=== PATIENT | male | born 1950 | race Hispanic/Latino ===

== ENCOUNTER → 2018-03-28 | Outpatient (CLI) | payer MEDICARE | END | disposition home or self-care (01) | LOC: RAH 10:06 | PROVIDERS: ATTEND Family Medicine | DX: M47.816 Spondylosis without myelopathy or radiculopathy, lumbar region (principal); M47.815 Spondylosis without myelopathy or radiculopathy, thoracolumbar region; R06.02 Shortness of breath; I70.0 Atherosclerosis of aorta | CPT/HCPCS: 71046; 72100 ==

== ENCOUNTER → 2018-11-10 | Outpatient (CLI) | payer MEDICARE | END | disposition home or self-care (01) | LOC: RAH 08:58 | PROVIDERS: ATTEND Family Medicine | DX: I65.23 Occlusion and stenosis of bilateral carotid arteries (principal) | CPT/HCPCS: 93880 ==

== ENCOUNTER → 2018-11-22 | Outpatient (CLI) | payer MEDICARE | END | disposition home or self-care (01) | LOC: RAH 08:44 | PROVIDERS: ATTEND Family Medicine | DX: J32.0 Chronic maxillary sinusitis (principal); J32.2 Chronic ethmoidal sinusitis | CPT/HCPCS: 70551 ==

== ENCOUNTER → 2020-12-12 | Outpatient (CLI) | payer OTHER, MEDICARE | END | disposition home or self-care (01) | LOC: RAH 13:21 | PROVIDERS: ATTEND Otolaryngology Plastic Surgery within the Head & Neck | DX: H74.8X2 Other specified disorders of left middle ear and mastoid (principal) | CPT/HCPCS: 70480 ==

== ENCOUNTER 2022-04-21 14:38 | Observation (INO) | payer OTHER, MEDICARE ==
[~2022-04-21] VITALS: Ht 175.3 cm; Wt 82.8 kg
[2022-04-21 16:31] LABS: BASOPHILS % (AUTO) 0.3 % (0.0-5.0); EOSINOPHILS % (AUTO) 25.6 % (0.0-8.0); HEMATOCRIT 40.1 % (42-54); LYMPHOCYTES % (AUTO) 9.1 % (21.0-51.0); MEAN CORPUSCULAR HEMOGLOBIN 31.1 pg (27.0-33.0); MEAN CORPUSCULAR HGB CONC 33.7 g/dL (32.0-36.0); MEAN CORPUSCULAR VOLUME 92.4 fL (79-99); MONOCYTES % (AUTO) 7.5 % (3.0-13.0); NEUTROPHILS % (AUTO) 56.7 % (40.0-77.0); PLATELET COUNT (AUTO) 217 K/uL (130-400); RED BLOOD CELL COUNT(AUTO) 4.34 MIL/uL (4.50-6.20); RED CELL DISTRIBUTION WIDTH 13.7 % (11.0-15.5); WHITE BLOOD COUNT (AUTO) 19.7 K/uL (4.8-10.8)
[2022-04-21 16:49] LABS: CREATININE 1.1 mg/dL (0.5-1.5); POTASSIUM 3.8 mmol/L (3.5-5.1)
[2022-04-21 16:54] LABS: ALBUMIN 3.7 g/dL (3.5-5.0); TOTAL PROTEIN, SERUM 7.5 g/dL (6.0-8.3)
[2022-04-21 17:29] LABS: BAND NEUTROPHILS % (MANUAL) 2 % (0-2); LYMPHOCYTES % (MANUAL) 3 % (22-44); MAN.DIFF COMMENT-IMPRESSION MANUAL DIFFERENTIAL; MONOCYTES % (MANUAL) 4 % (2-9); REACTIVE LYMPHOCYTES 2 % (0-0); SEGMENTED NEUTROPHILS % 89 % (40-70)
[2022-04-21 17:30] LABS: PLATELET MORPHOLOGY COMMENT ADEQUATE
[2022-04-21] MEDS ORDERED: CEFTRIAXONE 1G VIAL IVP ONE (18:00)
[2022-04-21] MEDS ORDERED: ACETAMINOPHEN 500 MG TABLET PO ONE (18:00)
[2022-04-21] MEDS ORDERED: 0.9%NACL 1000ML 1,000 ML IV ONE ×2 (18:00)
[2022-04-21 18:56] LABS: APPEARANCE,URINE CLOUDY (CLEAR); BILIRUBIN,URINE NEGATIVE (NEGATIVE); COLOR,URINE YELLOW (YELLOW); GLUCOSE, URINE (UA) NEGATIVE (NEGATIVE); KETONES,URINE 5 mg/dL (NEGATIVE); LEUKOCYTE ESTERASE ,URINE 500 Leu/uL (NEGATIVE); NITRATE,URINE 1+ (NEGATIVE); OCCULT BLOOD,URINE MODERATE (NEGATIVE); PH,URINE 5.5 (5.0-8.0); PROTEIN,URINE 100 mg/dL (NEGATIVE); UROBILINOGEN,URINE 0.2 mg/dL (0.2-1.0)
[2022-04-21 19:00] LABS: BACTERIA,URINE MANY /HPF (None Seen); MUCUS,URINE MOD LPF (None Seen); SQUAMOUS EPITHELIAL CELL,UR FEW /HPF (0-2); WBC,URINE TNTC /HPF (0-1)
[2022-04-21] MEDS ORDERED: CEFTRIAXONE 1G VIAL IVP STA (19:53)
[2022-04-21] MEDS ORDERED: ACETAMINOPHEN 325 MG TAB PO PRN (21:30)
[2022-04-21] MEDS ORDERED: TEMAZEPAM 15 MG CAPSULE PO PRN (21:30)
[2022-04-21] MEDS ORDERED: LACTULOSE 20 GM/30 ML UDCUP PO PRN (21:30)
[2022-04-21] MEDS ORDERED: LABETALOL 20MG SYG IV PRN (21:30)
[2022-04-21] MEDS ORDERED: DOCUSATE SODIUM 100 MG CAP PO PRN (21:30)
[2022-04-21] MEDS ORDERED: ONDANSETRON 4MG INJ IVP PRN (21:30)
[2022-04-21] MEDS ORDERED: HYDRALAZINE 20MG/ML VIAL IV PRN (21:30)
[2022-04-21] MEDS ORDERED: CLONIDINE HCL 0.1 MG TABLET PO PRN (21:30)
[2022-04-21] MEDS ORDERED: ACETAMINOPHEN 650 MG SUPPOSITORY RC PRN (21:30)
[2022-04-21] MEDS ORDERED: PIOG30TA70 PO (23:39)
[2022-04-21] MEDS ORDERED: MEMA5TAB42 PO (23:39)
[2022-04-21] MEDS ORDERED: METF-444 PO (23:39)
[2022-04-21] MEDS ORDERED: TAMS-1 PO (23:39)
[2022-04-21] MEDS ORDERED: ROSU10TA28 PO (23:39)
[2022-04-21] MEDS ORDERED: VITAMIN D3 PO (23:39)
[2022-04-22 06:09] LABS: BASOPHILS % (AUTO) 0.1 % (0.0-5.0); EOSINOPHILS % (AUTO) 0.1 % (0.0-8.0); LYMPHOCYTES % (AUTO) 9.9 % (21.0-51.0); MEAN CORPUSCULAR HEMOGLOBIN 31.1 pg (27.0-33.0); MEAN CORPUSCULAR HGB CONC 33.7 g/dL (32.0-36.0); MEAN CORPUSCULAR VOLUME 92.5 fL (79-99); MONOCYTES % (AUTO) 7.4 % (3.0-13.0); NEUTROPHILS % (AUTO) 81.8 % (40.0-77.0); PLATELET COUNT (AUTO) 161 K/uL (130-400); RED BLOOD CELL COUNT(AUTO) 4.11 MIL/uL (4.50-6.20); RED CELL DISTRIBUTION WIDTH 13.9 % (11.0-15.5); WHITE BLOOD COUNT (AUTO) 17.4 K/uL (4.8-10.8)
[2022-04-22 06:29] LABS: CREATININE 0.8 mg/dL (0.5-1.5); MAGNESIUM 1.9 mg/dL (1.80-2.40); POTASSIUM 3.7 mmol/L (3.5-5.1)
[2022-04-22] MEDS: INSULIN HUMULIN R 100 UNIT/ML 3ML SQ SCH ×4 (07:30→20:37)
[2022-04-22] MEDS: MEMANTINE HCL 5 MG TABLET PO SCH (08:17)
[2022-04-22] MEDS: TAMSULOSIN HCL 0.4 MG CAP.ER.24H PO SCH (08:17)
[2022-04-22] MEDS: CEFTRIAXONE 2GM VIAL IVP SCH (08:17)
[2022-04-22] MEDS: PANTOPRAZOLE 40 MG TAB DR PO SCH ×2 (08:18→20:13)
[2022-04-22] MEDS: ATORVASTATIN 20 MG TABLET PO SCH (08:18)
[2022-04-22] MEDS: VIT D3 5000 UNIT PO SCH (08:19)
[2022-04-22] MEDS: NICOTINE 21 MG/ 24 HR PATCH TD SCH (09:02)
[2022-04-22 15:55] VITALS: BP 169/100
[2022-04-22 20:00] VITALS: BP 144/71
[2022-04-23] VITALS: BP 123/78
[2022-04-23 04:00] VITALS: BP 142/89
[2022-04-23 05:33] LABS: HEMATOCRIT 35.8 % (42-54); MEAN CORPUSCULAR HEMOGLOBIN 31.4 pg (27.0-33.0); MEAN CORPUSCULAR HGB CONC 33.2 g/dL (32.0-36.0); MEAN CORPUSCULAR VOLUME 94.5 fL (79-99); RED BLOOD CELL COUNT(AUTO) 3.79 MIL/uL (4.50-6.20); RED CELL DISTRIBUTION WIDTH 13.7 % (11.0-15.5); WHITE BLOOD COUNT (AUTO) 11.5 K/uL (4.8-10.8)
[2022-04-23 05:49] LABS: CREATININE 0.8 mg/dL (0.5-1.5); MAGNESIUM 1.9 mg/dL (1.80-2.40); PHOSPHORUS 2.7 mg/dL (2.5-4.9); POTASSIUM 3.6 mmol/L (3.5-5.1)
[2022-04-23 05:57] LABS: HEMOGLOBIN A1C 6.3 % (4.0-6.0)
[2022-04-23] MEDS: INSULIN HUMULIN R 100 UNIT/ML 3ML SQ SCH ×2 (06:43→11:30)
[2022-04-23 08:30] VITALS: BP 138/78
[2022-04-23] MEDS: PANTOPRAZOLE 40 MG TAB DR PO SCH (08:35)
[2022-04-23] MEDS: TAMSULOSIN HCL 0.4 MG CAP.ER.24H PO SCH (08:35)
[2022-04-23] MEDS: MEMANTINE HCL 5 MG TABLET PO SCH (08:35)
[2022-04-23] MEDS: ATORVASTATIN 20 MG TABLET PO SCH (08:35)
[2022-04-23] MEDS: NICOTINE 21 MG/ 24 HR PATCH TD SCH (08:36)
[2022-04-23] MEDS: CEFTRIAXONE 2GM VIAL IVP SCH (08:36)
[2022-04-23] MEDS: VIT D3 5000 UNIT PO SCH (08:37)
[2022-04-23] MEDS ORDERED: ENOXAPARIN SODIUM 40 MG/0.4 ML SYRINGE SQ SCH (09:00)
[2022-04-23 11:00] VITALS: BP 140/97
[2022-04-23] MEDS ORDERED: LEVO-70 PO (12:21)
== END 2022-04-23 14:35 | disposition home or self-care (01) ==
LOC: EDH 14:38 → EDHIP 19:48 → 3BH 04-22 15:55
PROVIDERS: ADMIT Internal Medicine Critical Care Medicine; ATTEND Internal Medicine Critical Care Medicine
DX: A41.9 Sepsis, unspecified organism (principal); Z20.822 Contact with and (suspected) exposure to COVID-19; N30.00 Acute cystitis without hematuria; A80.9 Acute poliomyelitis, unspecified; E11.9 Type 2 diabetes mellitus without complications; E78.00 Pure hypercholesterolemia, unspecified; E78.5 Hyperlipidemia, unspecified; F17.200 Nicotine dependence, unspecified, uncomplicated; Z79.899 Other long term (current) drug therapy
CPT/HCPCS: 96374; 96376; 96361; 99285; 80053; 85025 ×2; 87040 ×2; 87077; 87088; 87186; 87804 ×2; 83605; 81001; 36415 ×3; 87635; 71045; 93005 ×3; 83735 ×2; 84100 ×2; 80048 ×2; 82948 ×5; 76770; 96372; 83036; 85027; 97161; 97116; 84145; G0378 ×42; C9803; J7030; J0696 ×4; J1650

== ENCOUNTER → 2022-09-25 | Outpatient (CLI) | payer OTHER, MEDICARE ==
[~2022-09-25] MED LIST: IOHEXOL 350 MG/ML 100ML INFUS..BTL IV ONE; LEVO-70 PO; MEMA5TAB42 PO; METF-444 PO; PIOG30TA70 PO; ROSU10TA28 PO; TAMS-1 PO; VITAMIN D3 PO
== END | disposition home or self-care (01) ==
LOC: RAH 09:51
PROVIDERS: ATTEND Family Medicine
DX: K57.32 Diverticulitis of large intestine without perforation or abscess without bleeding (principal); N39.0 Urinary tract infection, site not specified; R31.9 Hematuria, unspecified
CPT/HCPCS: 74178; Q9967

== ENCOUNTER 2023-10-01 06:41 | Day surgery (SDC) | payer OTHER, MEDICARE ==
[2023-09-27 09:38] VITALS: BP 131/71; PULSE 72; RESP 18
[2023-09-27 09:54] LABS: BASOPHILS # (AUTO) 0.03 K/uL (0.00-0.20); BASOPHILS % (AUTO) 0.4 % (0.0-5.0); EOSINOPHILS % (AUTO) 1.2 % (0.0-8.0); HEMATOCRIT 42.2 % (42-54); IMMATURE GRANULOCYTE ABSOLUTE 0.02 K/uL (0-1); LYMPHOCYTES # (AUTO) 2.1 K/uL (1.0-4.8); LYMPHOCYTES % (AUTO) 25.3 % (21.0-51.0); MEAN CORPUSCULAR HEMOGLOBIN 31.6 pg (27.0-33.0); MEAN CORPUSCULAR HGB CONC 33.2 g/dL (32.0-36.0); MEAN CORPUSCULAR VOLUME 95.3 fL (79-99); MONOCYTES # (AUTO) 0.7 K/uL (0.1-1.0); MONOCYTES % (AUTO) 8.5 % (3.0-13.0); NEUTROPHILS # (AUTO) 5.3 K/uL (1.8-7.7); NEUTROPHILS % (AUTO) 64.4 % (40.0-77.0); PLATELET COUNT (AUTO) 300 K/uL (130-400); RED BLOOD CELL COUNT(AUTO) 4.43 MIL/uL (4.50-6.20); RED CELL DISTRIBUTION WIDTH 13.3 % (11.0-15.5); WHITE BLOOD COUNT (AUTO) 8.3 K/uL (4.8-10.8)
[2023-09-27 10:00] LABS: APPEARANCE,URINE CLOUDY (CLEAR); BILIRUBIN,URINE NEGATIVE (NEGATIVE); COLOR,URINE YELLOW (YELLOW); GLUCOSE, URINE (UA) NEGATIVE (NEGATIVE); KETONES,URINE NEGATIVE (NEGATIVE); LEUKOCYTE ESTERASE ,URINE 500 Leu/uL (NEGATIVE); NITRATE,URINE 2+ (NEGATIVE); OCCULT BLOOD,URINE NEGATIVE (NEGATIVE); PH,URINE 5.5 (5.0-8.0); PROTEIN,URINE 10 mg/dL (NEGATIVE); UROBILINOGEN,URINE 0.2 mg/dL (0.2-1.0)
[2023-09-27 10:03] LABS: ADD UA MICROSCOPIC YES
[2023-09-27 10:07] LABS: INR 1.04 (0.85-1.15); PROTHROMBIN TIME 11.2 SEC (9.6-11.6)
[2023-09-27 10:08] LABS: PARTIAL THROMBOPLASTIN TIME 28.6 SEC (26.3-35.5)
[2023-09-27 10:10] LABS: BACTERIA,URINE MANY /HPF (None Seen); MUCUS,URINE FEW LPF (None Seen); SQUAMOUS EPITHELIAL CELL,UR RARE /HPF (0-2); UNCLASSIFIED CRYSTAL 1 /HPF (None Seen); WBC,URINE TNTC /HPF (0-1)
[2023-09-27 10:13] LABS: CREATININE 0.8 mg/dL (0.5-1.3)
[2023-10-01] VITALS (18 sets, daily range): BP systolic 112–161; BP diastolic 71–82; PULSE 64–78; RESP 13–18
[~2023-10-01] VITALS: Ht 172.7 cm; Wt 83.6 kg
[~2023-10-01 06:41] MED LIST changes: +FLUT1BLS3 IH; +HYDR-4068 PO; -IOHEXOL 350 MG/ML 100ML INFUS..BTL IV ONE; -LEVO-70 PO; +MEMA5TAB16 PO; -MEMA5TAB42 PO; -ROSU10TA28 PO; +ROSU10TA72 PO; -VITAMIN D3 PO
[2023-10-01] MEDS ORDERED: CEFAZOLIN SODIUM 2 GM VIAL ONE (07:23)
[2023-10-01] MEDS: LACTATED RINGERS 1000ML 1,000 ML IV ONE (07:30)
[2023-10-01] MEDS ORDERED: SUCCINYLCHOLINE CHLORIDE 20 MG/ML 10 ML VIAL ONE (07:36)
[2023-10-01] MEDS ORDERED: LIDOCAINE PF 100MG/5ML (2%) SYRINGE 5ML ONE (07:36)
[2023-10-01] MEDS ORDERED: GLYCOPYRROLATE 0.2 MG/ML 5 ML VIAL ONE (07:36)
[2023-10-01] MEDS ORDERED: DEXAMETHASONE SOD PHOSPHATE 10MG/ML 1ML VIAL ONE (07:36)
[2023-10-01] MEDS ORDERED: PROPOFOL 10 MG/ML 20ML VIAL IV ONE (07:36)
[2023-10-01] MEDS ORDERED: MIDAZOLAM HCL 1 MG/ML 2ML VIAL ONE (07:36)
[2023-10-01] MEDS ORDERED: ONDANSETRON 4MG INJ ONE (07:36)
[2023-10-01] MEDS ORDERED: ROCURONIUM BROMIDE 10MG/1ML 5ML VL ONE (07:37)
[2023-10-01] MEDS ORDERED: FENTANYL CITRATE PF 50 MCG/1 ML 2ML VIAL ONE ×2 (07:37→08:26)
[2023-10-01] MEDS ORDERED: BUPIVACAINE/PF 0.5% 30ML VIAL ONE (07:56)
[2023-10-01] MEDS: CEFAZOLIN SODIUM 2 GM VIAL IVPB ONE (08:01)
[2023-10-01] MEDS: MEPERIDINE-PF 25 MG/ML SYG ONE ×2 (09:46→09:58)
== END 2023-10-01 11:30 | disposition home or self-care (01) ==
LOC: DAH 06:41
PROVIDERS: ATTEND Student in an Organized Health Care Education/Training Program
DX: K43.2 Incisional hernia without obstruction or gangrene (principal); I10 Essential (primary) hypertension; E11.9 Type 2 diabetes mellitus without complications; J44.9 Chronic obstructive pulmonary disease, unspecified; F03.90 Unspecified dementia, unspecified severity, without behavioral disturbance, psychotic disturbance, mood disturbance, and anxiety; Z79.84 Long term (current) use of oral hypoglycemic drugs; F17.210 Nicotine dependence, cigarettes, uncomplicated; Z79.01 Long term (current) use of anticoagulants; Z79.899 Other long term (current) drug therapy
CPT/HCPCS: 49593; S2900; 36415; 80048; 81001; 82948; 85025; 85610; 85730; 87086; 87186; 93005; J0330; J1100; J2001; J2175; J2250; J2405; J2704; J3010; J3490; J7030; J7120; A4213; A4215; A4221; A4222; A4223; A4663; A6260; C1781; G0168; J0665; J0690

== ENCOUNTER 2024-01-05 16:25 | Emergency (ER) | payer OTHER, MEDICARE ==
[~2024-01-05] VITALS: Ht 172.7 cm; Wt 83.5 kg
[2024-01-05 16:28] VITALS: BP 182/91; PULSE 78; RESP 16; TEMP 98.3
[2024-01-05] MEDS: FENTanyl CITRate PF 50 MCG/1 ML 2ML VIAL IVP ONE (17:09)
[2024-01-05] MEDS ORDERED: MELO-108 PO (17:38)
== END 2024-01-05 18:57 | disposition home or self-care (01) ==
LOC: EDH 16:25
DX: S80.212A Abrasion, left knee, initial encounter (principal); M79.18 Myalgia, other site; M25.552 Pain in left hip; E11.9 Type 2 diabetes mellitus without complications; E78.00 Pure hypercholesterolemia, unspecified; Z79.84 Long term (current) use of oral hypoglycemic drugs; Z79.899 Other long term (current) drug therapy; V89.2XXA Person injured in unspecified motor-vehicle accident, traffic, initial encounter; Y93.55 Activity, bike riding; Y92.89 Other specified places as the place of occurrence of the external cause; Y99.8 Other external cause status
CPT/HCPCS: 99285; 70450; 96374; 71045; 73562; 72170; 72125; 71250; 74176; J3010